=== PATIENT | male | born 1970 | race Two or more races ===

== ENCOUNTER 2022-01-01 07:23 | Day surgery (SDC) | payer OTHER | END 2022-01-01 12:30 | disposition home or self-care (01) | LOC: AMB-ENDOS 07:23 | PROVIDERS: ATTEND Colon & Rectal Surgery | DX: D12.3 Benign neoplasm of transverse colon (principal); K62.89 Other specified diseases of anus and rectum; K64.4 Residual hemorrhoidal skin tags; C20 Malignant neoplasm of rectum; Z92.21 Personal history of antineoplastic chemotherapy ==

== ENCOUNTER 2022-10-29 06:57 | Day surgery (SDC) | payer OTHER | END 2022-10-29 11:05 | disposition home or self-care (01) | LOC: AMB-ENDOS 06:57 | PROVIDERS: ATTEND Colon & Rectal Surgery | DX: C20 Malignant neoplasm of rectum (principal); R59.0 Localized enlarged lymph nodes; Z20.822 Contact with and (suspected) exposure to COVID-19; K64.8 Other hemorrhoids ==

== ENCOUNTER 2023-03-04 06:54 | Day surgery (SDC) | payer OTHER | END 2023-03-04 12:25 | disposition home or self-care (01) | LOC: AMB-ENDOS 06:54 → CIR.AMB 14:15 | PROVIDERS: ATTEND Colon & Rectal Surgery | DX: C20 Malignant neoplasm of rectum (principal); D12.2 Benign neoplasm of ascending colon; Z20.822 Contact with and (suspected) exposure to COVID-19 ==

== ENCOUNTER 2024-03-02 06:57 | Day surgery (SDC) | payer OTHER ==
[2024-03-02] MEDS ORDERED: NALOXONE HCL 0.4 MG/ML AMPUL IV STA (10:57)
[2024-03-02] MEDS ORDERED: FLUMAZENIL 0.5 MG/5 ML ML IV STA (10:57)
[2024-03-02] MEDS ORDERED: MIDAZOLAM HCL 2 MG/2 ML VIAL IV ONE (11:00)
[2024-03-02] MEDS ORDERED: fentaNYL CITRATE 50 MCG/ML AMPUL IV PUSH ONE (11:00)
[2024-03-02] MEDS ORDERED: DIPHENHYDRAMINE HCL 50 MG/ML VIAL 1ML IV ONE (11:00)
[2024-03-02] MEDS ORDERED: ONDANSETRON HCL 2 MG/ML VIAL IV ONE (11:00)
== END 2024-03-02 12:05 | disposition home or self-care (01) ==
LOC: AMB-ENDOS 06:57
PROVIDERS: ATTEND Colon & Rectal Surgery
DX: C20 Malignant neoplasm of rectum (principal); R59.0 Localized enlarged lymph nodes

== ENCOUNTER 2025-03-15 08:05 | Day surgery (SDC) | payer OTHER ==
[2025-03-15] MEDS ORDERED: fentaNYL CITRATE 50 MCG/ML AMPUL IV PUSH ONE (11:00)
[2025-03-15] MEDS ORDERED: MIDAZOLAM HCL 2 MG/2 ML VIAL IV ONE (11:00)
[2025-03-15] MEDS ORDERED: DIPHENHYDRAMINE HCL 50 MG/ML VIAL 1ML IV ONE (11:00)
[2025-03-15] MEDS ORDERED: ONDANSETRON HCL 2 MG/ML VIAL IV ONE (11:00)
== END 2025-03-15 12:10 | disposition home or self-care (01) ==
LOC: AMB-ENDOS 08:05
PROVIDERS: ATTEND Colon & Rectal Surgery
DX: C20 Malignant neoplasm of rectum (principal)